=== PATIENT | male | born 1980 | race Caucasian/White ===

== ENCOUNTER 2020-06-26 03:12 | Emergency (ER) | payer OTHER ==
[2020-06-26 03:45] VITALS: BP 106/68; PULSE 70; TEMP 98.3; BMI 23.5
--- NOTE | 2020-06-26 04:35 | PDOC ---
History of Present Illness - General Chief Complaint: Chest Pain Stated Complaint: CHEST PAIN Time Seen by Provider: 06/26/20 04:18 History Source: Patient, Old Records Exam Limitations: No Limitations - History of Present Illness Initial Comments: 06/26/20 04:32 HPI: 39 yo M pmh heroin abuse presenting from [facility] without medical complaint. Denies any chest pain, SOB, concerns. Wants detox but was rejected from [facility] due to being active in a methadone program. EMS report of ?chest pain, patient denies any chest pain at present. All: NKDA Past History - Travel History Traveled outside of the country in the last 30 days: No Close contact w/someone who was outside of country & ill: No - Medical History Allergies/Adverse Reactions: Allergies Allergy/AdvReac Type Severity Reaction Status Date / Time No Known Allergies Allergy Verified 06/26/20 01:08 - Psycho-Social/Smoking History Smoking History: Current some day smoker Information on smoking cessation initiated: Yes - Substance Abuse Hx (Audit-C & DAST Scrn) How often the patient has a drink containing alcohol: Monthly or less Score: In Men: 4 or > Positive; In Women: 3 or > Positive: 1 Screen Result (Pos requires Nsg. Audit-10AR): Negative In the last yr the pt used illegal drug/Rx for NonMed reason: Yes Score: Yes response is considered Positive: 1 Screen Result (Positive result requires Nsg. DAST-10): Positive Review of Systems - Review of Systems Able to Perform ROS?: Yes Comments:: 06/26/20 04:33 No complaints, ROS negative Is the patient limited Wolof proficient: Yes Constitutional: No: Chills, Fever Respiratory: No: Cough, Shortness of Breath Cardiac (ROS): No: Chest Pain, Chest Tightness ABD/GI: No: Constipated, Diarrhea, Nausea, Vomiting Neurological: No: Headache, Numbness, Weakness All Other Systems: Reviewed and Negative *Physical Exam - Vital Signs Last Vital Signs Temp Pulse Resp BP Pulse Ox 98.3 F 70 18 106/68 06/26/20 03:36 06/26/20 03:36 06/26/20 03:36 06/26/20 03:36 - Physical Exam 06/26/20 06:50 Vitals reviewed, AFVSS GEN: Well appearing, appears stated age, NAD, comfortable. AAOx3. HEENT: NCAT, EOMI, PERRL. Sclera anicteric, noninjected. No facial asymmetry. Moist mucous membranes. Normal voice. Trachea midline. CV: RRR, S1/S2, no murmurs / rubs / gallops appreciated. LUNG: CTABL, normal work of breathing. No wheezes, rales, rhonchi. No cough. Speaking full sentences. GI: Soft, NTND, +BS, no guarding, no rebound. No masses. EXTREMITIES: 2+ distal pulses. No clubbing / cyanosis / edema. No gross deformity in any extremity. SKIN: Warm, dry, no rashes appreciated, non-jaundiced. PSYCH: Normal mood and affect. Cooperative and appropriate. NEURO: CN grossly intact. Moving all extremities well. Normal strength and sensation grossly. Medical Decision Making - Medical Decision Making 06/26/20 04:33 39 yo M pmh heroin abuse presenting from [facility] without medical complaint. Denies any chest pain, SOB, concerns. Wants detox but was rejected from [facility] due to being active in a methadone program. EKbpm, NSR, normal axis, normal intervals, QTc 453, no ST changes or concerning morphologies. Patient denies any medical complaints. Does not know why he was sent to the ED. No indication in [facility] note as to why he was sent. EMS report of ?chest pain which patient denies. EKG obtained, patient discharged to followup for detox. Ambulatory, A&Ox3 in the department, well appearing. Dispo: Home Discharge - Discharge Information Problems reviewed: Yes Clinical Impression/Diagnosis: Opiate dependence Qualifiers: Substance use status: uncomplicated Qualified Code(s): F11.20 - Opioid dependence, uncomplicated Condition: Good Disposition: HOME - Admission No - Follow up/Referral - Patient Discharge Instructions Additional Instructions: Please return with any medical concerns. Follow up with [facility] for detox. - Post Discharge Activity
--- NOTE | 2020-06-26 04:40 | PDOC ---
Attending Attestation - Resident Resident Name: Terry Francois - ED Attending Attestation I have performed the following: I have examined & evaluated the patient, The case was reviewed & discussed with the resident, I agree w/resident's findings & plan - HPI HPI: 06/26/20 04:39 see resident hpi - Physicial Exam PE: 06/26/20 04:39 see resident exam - Medical Decision Making 06/26/20 04:39 39-year-old male sent here from detox after supposed to complain of chest pain that he now adamantly denies Patient has no medical complaints at all at this time stating he just wanted detox He was denied by [facility] due to current methadone use last dose taken yesterday Patient will be discharged with recommendations to return to his rehab of choice. Discharge - Discharge Information Problems reviewed: Yes Clinical Impression/Diagnosis: Opiate dependence Condition: Good Disposition: HOME - Follow up/Referral - Patient Discharge Instructions Additional Instructions: Please return with any medical concerns. Follow up with [facility] for detox. - Post Discharge Activity
--- NOTE | 2020-06-26 12:57 | EKG ---
Test Reason : Blood Pressure : / mmHG Vent. Rate : 073 BPM Atrial Rate : 073 BPM P-R Int : 130 ms QRS Dur : 086 ms QT Int : 412 ms P-R-T Axes : 074 074 068 degrees QTc Int : 453 ms NORMAL SINUS RHYTHM NORMAL ECG NO PREVIOUS ECGS AVAILABLE Confirmed by MD SHELIA, IRIS ([id number]) on 06/26/2020 12:57:05 PM Referred By: Confirmed By:IRIS BASS MD
== END 2020-06-26 06:45 | disposition home or self-care (01) ==
LOC: JER 03:12
DX: F11.20 Opioid dependence, uncomplicated (principal)
CPT/HCPCS: 93005; 93010; 99283-25